=== PATIENT | female | born 1945 | race Caucasian/White ===

== ENCOUNTER 2020-04-07 06:17 | Inpatient (IN) | payer MEDICARE ==
[~2020-04-07] VITALS: Ht 152.4 cm; Wt 45.2 kg
[~2020-04-07 06:17] MED LIST: ALBU18HF7 IH; CHOL200041 PO; DILT300C23 PO; DIPH25TA20 PO; FISH1CAP49 PO; FURO20TA4 PO; LEVO500T2 PO; MILK500C PO; MULT-503 PO; NAPR220C15 PO; POTA-79 PO; PRED10TA3 PO; RIVA20TA PO; TIOT18CA3 IH
[2020-04-07] MEDS ORDERED: ONDANSETRON HCL 4 MG/2 ML VIAL ONE (06:28)
[2020-04-07] MEDS ORDERED: FENTANYL CITRATE PF 50 MCG/1 ML 2ML VIAL ONE (06:29)
[2020-04-07 06:47] LABS: BASOPHILS % (AUTO) 0.1 % (0.0-5.0); EOSINOPHILS % (AUTO) 0.1 % (0.0-8.0); HEMATOCRIT 32.8 % (36-48); LYMPHOCYTES % (AUTO) 4.4 % (21.0-51.0); MEAN CORPUSCULAR HEMOGLOBIN 32.7 pg (27.0-33.0); MEAN CORPUSCULAR HGB CONC 34.5 g/dL (32.0-36.0); MEAN CORPUSCULAR VOLUME 94.8 fL (79-99); MONOCYTES % (AUTO) 9.6 % (3.0-13.0); NEUTROPHILS % (AUTO) 85.4 % (40.0-77.0); PLATELET COUNT (AUTO) 313 K/uL (130-400); RED BLOOD CELL COUNT(AUTO) 3.46 MIL/uL (4.00-5.50); RED CELL DISTRIBUTION WIDTH 13.7 % (11.0-15.5); WHITE BLOOD COUNT (AUTO) 14.6 K/uL (4.8-10.8)
[2020-04-07 06:57] LABS: CREATININE 0.8 mg/dL (0.5-1.5); POTASSIUM 3.5 mmol/L (3.5-5.1)
[2020-04-07 07:01] LABS: ALBUMIN 3.3 g/dL (3.5-5.0); BILIRUBIN,TOTAL 0.7 mg/dL (0.2-1.0); TOTAL PROTEIN, SERUM 6.9 g/dL (6.0-8.3)
[2020-04-07 07:03] LABS: INR 0.94 (0.85-1.15); PARTIAL THROMBOPLASTIN TIME 27.5 SEC (26.3-35.5); PROTHROMBIN TIME 10.2 SEC (9.6-11.6)
[2020-04-07 07:15] LABS: APPEARANCE,URINE Clear (CLEAR); BILIRUBIN,URINE Negative (NEGATIVE); COLOR,URINE Yellow (YELLOW); GLUCOSE, URINE (UA) Negative (NEGATIVE); KETONES,URINE Trace mg/dL (NEGATIVE); LEUKOCYTE ESTERASE ,URINE Trace (NEGATIVE); NITRATE,URINE Negative (NEGATIVE); OCCULT BLOOD,URINE Negative (NEGATIVE); PH,URINE 8.5 (5.0-8.0); PROTEIN,URINE Trace mg/dL (NEGATIVE); UROBILINOGEN,URINE 0.2 mg/dL (0.2-1.0)
[2020-04-07] MEDS ORDERED: IPRATROPIUM/ALBUTEROL SULFATE 3 ML SOLUTION IH ONE ×2 (07:31→18:30)
[2020-04-07 08:30] LABS: BACTERIA,URINE Moderate /HPF (None Seen); RBC,URINE None Seen /HPF (0-1); WBC,URINE 0-1 /HPF (0-1)
[2020-04-07] MEDS ORDERED: CEFTRIAXONE SODIUM 2 GM VIAL ONE (09:28)
[2020-04-07] MEDS ORDERED: ACETAMINOPHEN 325 MG TAB PO PRN (09:45)
[2020-04-07] MEDS: SODIUM CHLORIDE 0.9% 1000ML 1,000 ML IV SCH ×3 (10:00→23:20)
[2020-04-07] MEDS: AZITHROMYCIN 500MG+NS 250ML 250 ML IV SCH (10:00)
[2020-04-07] MEDS ORDERED: AZITHROMYCIN 500MG+NS 250ML 250 ML IV ONE (10:41)
[2020-04-07] MEDS ORDERED: MORPHINE SULFATE 2 MG/ML 1ML SYG ONE (10:41)
[2020-04-07 11:52] VITALS: BP 134/67
[2020-04-07] MEDS ORDERED: BUDE10.2 IH (12:43)
[2020-04-07 17:00] VITALS: BP 146/78
[2020-04-07 20:00] VITALS: BP 150/41
[2020-04-07] MEDS: FAMOTIDINE/PF 20 MG/2 ML VIAL IV SCH (20:53)
[2020-04-07] MEDS: ACETAMINOPHEN-CODEINE 300/30MG TAB PO PRN (21:45)
[2020-04-07] MEDS ORDERED: BUDESONIDE 0.25 MG/2 ML INH IH ONE (22:31)
[2020-04-07] MEDS ORDERED: BUDESONIDE 0.5 MG/2 ML INH IH ONE (22:38)
[2020-04-07] MEDS: ALBUTEROL SULFATE 0.083% 2.5 MG/3 ML INH IH PRN (22:39)
[2020-04-08] VITALS: BP 107/53
[2020-04-08] MEDS: SODIUM CHLORIDE 0.9% 1000ML 1,000 ML IV SCH (01:50)
[2020-04-08 03:45] VITALS: BP 127/58
[2020-04-08 03:55] LABS: BASOPHILS % (AUTO) 0.3 % (0.0-5.0); EOSINOPHILS % (AUTO) 0.4 % (0.0-8.0); HEMATOCRIT 26.3 % (36-48); MEAN CORPUSCULAR HEMOGLOBIN 33.5 pg (27.0-33.0); MEAN CORPUSCULAR HGB CONC 34.2 g/dL (32.0-36.0); MEAN CORPUSCULAR VOLUME 97.8 fL (79-99); MONOCYTES % (AUTO) 9.5 % (3.0-13.0); NEUTROPHILS % (AUTO) 83.3 % (40.0-77.0); PLATELET COUNT (AUTO) 217 K/uL (130-400); RED BLOOD CELL COUNT(AUTO) 2.69 MIL/uL (4.00-5.50); RED CELL DISTRIBUTION WIDTH 14.5 % (11.0-15.5); WHITE BLOOD COUNT (AUTO) 13.1 K/uL (4.8-10.8)
[2020-04-08 04:07] LABS: ALBUMIN 2.6 g/dL (3.5-5.0); BILIRUBIN,TOTAL 0.4 mg/dL (0.2-1.0); CREATININE 0.5 mg/dL (0.5-1.5); POTASSIUM 3.5 mmol/L (3.5-5.1); TOTAL PROTEIN, SERUM 5.7 g/dL (6.0-8.3)
[2020-04-08] MEDS: MORPHINE SULFATE 2 MG/ML 1ML SYG IVP PRN ×2 (04:35→21:39)
[2020-04-08] MEDS: ALBUTEROL SULFATE 0.083% 2.5 MG/3 ML INH IH PRN ×5 (07:13→23:31)
[2020-04-08 08:00] VITALS: BP 103/62
[2020-04-08] MEDS: AZITHROMYCIN 500MG+NS 250ML 250 ML IV SCH (10:02)
[2020-04-08] MEDS: ENOXAPARIN SODIUM 40 MG/0.4 ML SYRINGE SQ SCH (10:02)
[2020-04-08] MEDS: FAMOTIDINE/PF 20 MG/2 ML VIAL IV SCH ×2 (10:03→21:40)
[2020-04-08] MEDS: NICOTINE 21 MG/ 24 HR PATCH TD SCH (10:03)
[2020-04-08 11:00] VITALS: BP 136/51
[2020-04-08] MEDS ORDERED: ALBUTEROL INHALER 90MCG/INH IH PRN (13:15)
[2020-04-08] MEDS: CEFTRIAXONE SODIUM 1 GM IVP SCH (14:56)
[2020-04-08] MEDS: FUROSEMIDE 10 MG/ML 2ML VIAL IV SCH (14:58)
[2020-04-08 16:00] VITALS: BP 157/62
[2020-04-08] MEDS: ACETAMINOPHEN-CODEINE 300/30MG TAB PO PRN (18:26)
--- NOTE | 2020-04-08 18:35 | NUR ---
cm note met with patient and states lives alone, , uses walker , has nebulizer, adls per self, has friends that buy her groceries, [facility] [place], Kenyatta Sorto [phone]. Discussed snf with pt, and states is agreeable to go to snf/rehab after surgery. will let cm know. Addendum: 04/08/20 at 1837 by ERLIN REID CM Amended: Links added.
[2020-04-08 20:28] VITALS: BP 133/53
[2020-04-09 00:05] VITALS: BP 159/64
[2020-04-09] MEDS: CEFTRIAXONE SODIUM 1 GM IVP SCH ×3 (01:47→23:56)
[2020-04-09] MEDS: ACETAMINOPHEN-CODEINE 300/30MG TAB PO PRN (01:48)
[2020-04-09] MEDS: FUROSEMIDE 10 MG/ML 2ML VIAL IV SCH (01:48)
[2020-04-09] MEDS: ALBUTEROL SULFATE 0.083% 2.5 MG/3 ML INH IH PRN ×3 (02:21→09:21)
--- NOTE | 2020-04-09 03:22 | NUR ---
PATIENT CONVERTED TO AFIB. MIKAYLA MCCRARY WAS NOTIFIED. NEW ORDERS WERE OBTAINED FOR ONE TIME DOSE OF METOPROLOL TAR 5MG, EKG, MAG, CBC, AND BMP LABS
[2020-04-09] MEDS ORDERED: MAGNESIUM 2GM PREMIX 50ML 50 ML IV PRN (03:30)
[2020-04-09] MEDS: METOPROLOL TARTRATE 1 MG/ML 5ML VIAL IV SCH (03:30)
[2020-04-09] MEDS ORDERED: METOPROLOL TARTRATE 1 MG/ML 5ML VIAL IV ONE (03:35)
[2020-04-09 04:19] VITALS: BP 165/88
[2020-04-09 05:06] LABS: HEMATOCRIT 27.8 % (36-48); MEAN CORPUSCULAR HEMOGLOBIN 34.2 pg (27.0-33.0); MEAN CORPUSCULAR HGB CONC 34.9 g/dL (32.0-36.0); MEAN CORPUSCULAR VOLUME 97.9 fL (79-99); RED BLOOD CELL COUNT(AUTO) 2.84 MIL/uL (4.00-5.50); WHITE BLOOD COUNT (AUTO) 11.5 K/uL (4.8-10.8)
[2020-04-09 05:11] LABS: CREATININE 0.4 mg/dL (0.5-1.5); MAGNESIUM 1.5 mg/dL (1.80-2.40)
[2020-04-09 05:16] LABS: POTASSIUM 2.5 mmol/L (3.5-5.1)
[2020-04-09 05:25] LABS: CREATINE KINASE, TOTAL 92 U/L (21-232); MYOGLOBIN 94 ng/mL (10-92); TROPONIN I < 0.04 ng/mL (0.00-0.06)
[2020-04-09] MEDS: POTASSIUM CHLORIDE 20MEQ/100ML 100 ML IV PRN ×2 (07:27→14:23)
[2020-04-09 08:00] VITALS: BP 153/53
[2020-04-09] MEDS: ENOXAPARIN SODIUM 40 MG/0.4 ML SYRINGE SQ SCH (09:00)
[2020-04-09] MEDS: DEXAMETHASONE SOD PHOSPHATE 4 MG/ML 1ML VIAL IVP SCH (10:09)
[2020-04-09] MEDS: FAMOTIDINE/PF 20 MG/2 ML VIAL IV SCH ×2 (10:10→20:20)
[2020-04-09] MEDS: DILTIAZEM HCL 180 MG CAP.SR.24H PO SCH (10:11)
[2020-04-09] MEDS: DILTIAZEM HCL 120 MG CAP.SR.24H PO SCH (10:11)
[2020-04-09] MEDS: NICOTINE 21 MG/ 24 HR PATCH TD SCH (10:12)
[2020-04-09] MEDS: AZITHROMYCIN 500MG+NS 250ML 250 ML IV SCH (10:13)
[2020-04-09] MEDS: ALBUTEROL SULFATE 0.083% 2.5 MG/3 ML INH IH SCH ×2 (11:35→18:40)
[2020-04-09 12:00] VITALS: BP 158/58
[2020-04-09] MEDS: LIDOCAINE HCL-MPF 1% 2ML VIAL IV PRN (14:23)
[2020-04-09 16:00] VITALS: BP 149/48
[2020-04-09] MEDS ORDERED: IPRATROPIUM/ALBUTEROL SULFATE 3 ML SOLUTION IH PRN (16:00)
[2020-04-09] MEDS: BUDESONIDE 0.5 MG/2 ML INH IH SCH (18:59)
[2020-04-09] MEDS: POTASSIUM CHLORIDE 20 MEQ ERTAB PO PRN ×2 (20:20→23:56)
[2020-04-09 21:30] VITALS: BP 158/59
[2020-04-10] VITALS (32 sets, daily range): BP systolic 123–164; BP diastolic 45–108
[2020-04-10] MEDS: METOPROLOL TARTRATE 1 MG/ML 5ML VIAL IV SCH (03:30)
[2020-04-10 05:48] LABS: BASOPHILS % (AUTO) 0.1 % (0.0-5.0); HEMATOCRIT 28.5 % (36-48); LYMPHOCYTES % (AUTO) 2.4 % (21.0-51.0); MEAN CORPUSCULAR HEMOGLOBIN 33.4 pg (27.0-33.0); MEAN CORPUSCULAR HGB CONC 34.4 g/dL (32.0-36.0); MEAN CORPUSCULAR VOLUME 97.3 fL (79-99); MONOCYTES % (AUTO) 7.4 % (3.0-13.0); NEUTROPHILS % (AUTO) 89.7 % (40.0-77.0); PLATELET COUNT (AUTO) 262 K/uL (130-400); RED BLOOD CELL COUNT(AUTO) 2.93 MIL/uL (4.00-5.50); RED CELL DISTRIBUTION WIDTH 14.1 % (11.0-15.5); WHITE BLOOD COUNT (AUTO) 14.3 K/uL (4.8-10.8)
[2020-04-10 06:06] LABS: CREATININE 0.4 mg/dL (0.5-1.5); POTASSIUM 4.2 mmol/L (3.5-5.1)
[2020-04-10] MEDS: ALBUTEROL SULFATE 0.083% 2.5 MG/3 ML INH IH SCH ×4 (06:58→19:01)
[2020-04-10] MEDS: BUDESONIDE 0.5 MG/2 ML INH IH SCH ×2 (06:58→19:01)
[2020-04-10] MEDS: NICOTINE 21 MG/ 24 HR PATCH TD SCH (09:00)
[2020-04-10] MEDS: DEXAMETHASONE SOD PHOSPHATE 4 MG/ML 1ML VIAL IVP SCH (09:00)
[2020-04-10] MEDS: DILTIAZEM HCL 120 MG CAP.SR.24H PO SCH (09:00)
[2020-04-10] MEDS: DILTIAZEM HCL 180 MG CAP.SR.24H PO SCH (09:00)
[2020-04-10] MEDS: ENOXAPARIN SODIUM 40 MG/0.4 ML SYRINGE SQ SCH (09:00)
[2020-04-10] MEDS: FAMOTIDINE/PF 20 MG/2 ML VIAL IV SCH ×2 (09:00→20:01)
[2020-04-10] MEDS ORDERED: SUCCINYLCHOLINE CHLORIDE 20 MG/ML 10 ML VIAL ONE (10:00)
[2020-04-10] MEDS ORDERED: LIDOCAINE PF 2% 5ML ABBOJECT ONE (10:00)
[2020-04-10] MEDS ORDERED: GLYCOPYRROLATE 1 MG/5 ML SYRINGE ONE (10:01)
[2020-04-10] MEDS ORDERED: DEXAMETHASONE SOD PHOSPHATE 10MG/ML 1ML VIAL ONE (10:01)
[2020-04-10] MEDS ORDERED: NEOSTIGMINE 5MG/5ML SYR IV ONE (10:01)
[2020-04-10] MEDS ORDERED: MIDAZOLAM HCL 1 MG/ML 2ML VIAL ONE (10:01)
[2020-04-10] MEDS ORDERED: PROPOFOL 10 MG/ML 20ML VIAL IV ONE (10:01)
[2020-04-10] MEDS ORDERED: ROCURONIUM 10MG/1ML SYR 10 MG/ML ML ONE (10:02)
[2020-04-10] MEDS ORDERED: ONDANSETRON HCL 4 MG/2 ML VIAL ONE (10:02)
[2020-04-10] MEDS ORDERED: FENTANYL CITRATE PF 50 MCG/1 ML 2ML VIAL ONE (10:04)
[2020-04-10] MEDS ORDERED: EPHEDRINE SULFATE 50 MG/ML AMPULE ONE (10:05)
--- NOTE | 2020-04-10 10:06 | NUR ---
pt is prepared for lt hip surgery. npo, a/o x3.
[2020-04-10] MEDS ORDERED: ALBUMIN (HUMAN) 5% 500 ML IV ONE (10:21)
[2020-04-10] MEDS ORDERED: ROPIVACAINE 0.5% 5MG/ML 30ML IJ ONE (10:21)
[2020-04-10] MEDS ORDERED: KETAMINE 50MG/ML SYRINGE 50 MG/ML DISP.SYRIN IV ONE (10:22)
--- NOTE | 2020-04-10 10:24 | NUR ---
pt taken by bed in good condition to surgery for lt hip repair with O2 3lnc in place
--- NOTE | 2020-04-10 10:25 | NUR ---
IV ABX's with surgery staff
[2020-04-10] MEDS: AZITHROMYCIN 500MG+NS 250ML 250 ML IV SCH (10:31)
[2020-04-10] MEDS ORDERED: LACTATED RINGERS 1000ML 1,000 ML IV ONE (10:39)
[2020-04-10] MEDS ORDERED: CEFTRIAXONE SODIUM 1 GM ONE (12:01)
[2020-04-10] MEDS: CEFTRIAXONE SODIUM 1 GM IVP SCH (13:00)
--- NOTE | 2020-04-10 14:50 | NUR ---
CALLED DAUGHTERDAWNA TO NOTIFY HER OF PT IN ROOM BACK FROM O.R. VERBALIZED UNDERSTANDING.
--- NOTE | 2020-04-10 20:00 | NUR ---
PATIENT RECEIVED IN BED, AAOX1-2. PT IS POST LEFT HIP ORIF. DRESSING TO LEFT HIP IS D/I, WITH PULSES STRONG TO DORSALIS. PATIENT CURRENTLY WITH A NRB MASK. PER REPORT, PT WITH LOW SATURATIONS WITH NC. PATIENT NOT COMPLYING WITH KEEPING ON NRB MASK. SHE WAS ASSISTED WITH EATING ICE CREAM AND NRM PLACED BACK ON PATIENT. INSTRUCTED HER TO KEEP MASK ON. PATIENT NODDED AGREEMENT. TELE WITH SINUS 80. WILL CONT TO MONITOR CLOSELY.
--- NOTE | 2020-04-10 23:00 | NUR ---
PEGGY MARISCAL WAS NOTIFIED BY TELEMONITOR PT WITH HR IN THE 30s JUNCTIONAL RHYTHM FOR ABOUT A MINUTE, THEN BACK TO THE 50s. I WENT TO CHECK ON PATIENT, PATIENT WAS FOUND WITHOUT HER NRB MASK AND UNRESPONSIVE. PEGGY MARISCAL IMMEDIATELY CALLED. REFER TO PEGGY MARISCAL FLOW SHEET. PT WAS INTUBATED BY DR. REINOSO AND THEN TRANSFERRED TO ROOM DP-15. REPORT GIVEN TO AILIN BECERRA.
[2020-04-10 23:18] LABS: BASOPHILS % (AUTO) 0.2 % (0.0-5.0); EOSINOPHILS % (AUTO) 0.1 % (0.0-8.0); HEMATOCRIT 27.8 % (36-48); LYMPHOCYTES % (AUTO) 3.6 % (21.0-51.0); MEAN CORPUSCULAR HEMOGLOBIN 33.1 pg (27.0-33.0); MEAN CORPUSCULAR VOLUME 103.3 fL (79-99); MONOCYTES % (AUTO) 4.6 % (3.0-13.0); NEUTROPHILS % (AUTO) 88.7 % (40.0-77.0); PLATELET COUNT (AUTO) 237 K/uL (130-400); RED BLOOD CELL COUNT(AUTO) 2.69 MIL/uL (4.00-5.50); RED CELL DISTRIBUTION WIDTH 14.9 % (11.0-15.5); WHITE BLOOD COUNT (AUTO) 13.7 K/uL (4.8-10.8)
[2020-04-10 23:29] LABS: CREATININE 0.7 mg/dL (0.5-1.5); POTASSIUM 5.8 mmol/L (3.5-5.1)
[2020-04-10 23:34] LABS: ALBUMIN 3.1 g/dL (3.5-5.0); BILIRUBIN,TOTAL 0.5 mg/dL (0.2-1.0); MAGNESIUM 2.2 mg/dL (1.80-2.40); TOTAL PROTEIN, SERUM 6.7 g/dL (6.0-8.3)
--- NOTE | 2020-04-10 23:35 | NUR ---
I CALLED PT'S DAUGHTER, DAWNA, INFORMED HER OF CODE BLUE AND THAT PATIENT WAS TRANSFERRED TO ROOM DP-15.
[2020-04-10 23:36] LABS: INR 1.06 (0.85-1.15); PARTIAL THROMBOPLASTIN TIME 26.1 SEC (26.3-35.5); PROTHROMBIN TIME 11.4 SEC (9.6-11.6)
[2020-04-11] VITALS (24 sets, daily range): BP systolic 110–179; BP diastolic 43–87
[2020-04-11] MEDS: CEFTRIAXONE SODIUM 1 GM IVP SCH ×2 (00:08→12:23)
[2020-04-11] MEDS: ALBUTEROL SULFATE 0.083% 2.5 MG/3 ML INH IH SCH ×5 (00:45→23:52)
[2020-04-11 00:59] LABS: ABG OXYGEN SATURATION 99.7 % (95.0-99.0); ABG PCO2 55 mmHg (32-45)
[2020-04-11] MEDS ORDERED: FENTANYL CITRATE PF 0.05 MG/ML 1,000 MCG in SODIUM CHLORIDE 0.9% 100 ML IVPB SCH (01:15)
[2020-04-11] MEDS: PROPOFOL 1000 MG/100 ML 100 ML IV SCH ×3 (01:17→17:11)
[2020-04-11] MEDS: METOPROLOL TARTRATE 1 MG/ML 5ML VIAL IV SCH (01:59)
[2020-04-11 03:17] LABS: BASOPHILS % (AUTO) 0.1 % (0.0-5.0); HEMATOCRIT 24.4 % (36-48); MEAN CORPUSCULAR HEMOGLOBIN 32.9 pg (27.0-33.0); MEAN CORPUSCULAR HGB CONC 32.4 g/dL (32.0-36.0); MEAN CORPUSCULAR VOLUME 101.7 fL (79-99); MONOCYTES % (AUTO) 10.9 % (3.0-13.0); NEUTROPHILS % (AUTO) 85.3 % (40.0-77.0); PLATELET COUNT (AUTO) 171 K/uL (130-400); RED CELL DISTRIBUTION WIDTH 14.6 % (11.0-15.5); WHITE BLOOD COUNT (AUTO) 13.4 K/uL (4.8-10.8)
[2020-04-11] MEDS ORDERED: IOHEXOL-350 75 ML VIAL IV ONE ×2 (03:18→03:50)
[2020-04-11 03:25] LABS: CREATININE 0.4 mg/dL (0.5-1.5); POTASSIUM 4.6 mmol/L (3.5-5.1)
[2020-04-11] MEDS: BUDESONIDE 0.5 MG/2 ML INH IH SCH ×2 (06:16→18:50)
[2020-04-11] MEDS ORDERED: EPOETIN ALFA 10,000 UNIT/ML VIAL SQ SCH (08:45)
[2020-04-11] MEDS ORDERED: CYANOCOBALAMIN (VITAMIN B-12) 1,000 MCG TABLET PO SCH (08:45)
[2020-04-11] MEDS: FAMOTIDINE/PF 20 MG/2 ML VIAL IV SCH ×2 (09:43→20:32)
[2020-04-11] MEDS: DILTIAZEM HCL 120 MG CAP.SR.24H PO SCH (09:44)
[2020-04-11] MEDS: IRON SUCROSE COMPLEX 300 MG in SODIUM CHLORIDE 0.9% 250 ML IV SCH (09:44)
[2020-04-11] MEDS: DILTIAZEM HCL 180 MG CAP.SR.24H PO SCH (09:44)
[2020-04-11] MEDS: NICOTINE 21 MG/ 24 HR PATCH TD SCH (09:45)
[2020-04-11] MEDS: FOLIC ACID 1 MG TABLET PO SCH (09:45)
[2020-04-11] MEDS: DEXAMETHASONE SOD PHOSPHATE 4 MG/ML 1ML VIAL IVP SCH (09:45)
[2020-04-11] MEDS: AZITHROMYCIN 500MG+NS 250ML 250 ML IV SCH (11:40)
[2020-04-11] MEDS: ENOXAPARIN SODIUM 40 MG/0.4 ML SYRINGE SQ SCH (12:00)
[2020-04-11] MEDS: DILTIAZEM HCL 60 MG TABLET PO SCH ×4 (12:23→22:31)
--- NOTE | 2020-04-11 12:31 | NUR ---
DC PLAN SEE NOTES FOR INITIAL IA. ALONE [place]IO CO[place]URN, NEB, HOME. ALFREDR DAWNA [phone]. PEGGY MARISCAL 04/10. Addendum: 04/11/20 at 1232 by JENNIE ELIZONDO RN Amended: Links added.
[2020-04-11] MEDS ORDERED: HYDRALAZINE HCL 20 MG/ML VIAL ONE (13:00)
[2020-04-11] MEDS ORDERED: LABETALOL HCL 5 MG/ML 20ML VIAL IV PRN (13:45)
[2020-04-11] MEDS: FENTANYL 2500MCG+NS 250ML 250 ML IV SCH (13:50)
[2020-04-11] MEDS ORDERED: ALBUTEROL SULFATE 0.083% 2.5 MG/3 ML INH IH PRN (14:00)
[2020-04-11] MEDS: MEROPENEM 1 GM VIAL IVP SCH (17:11)
[2020-04-11] MEDS ORDERED: ATROPINE SULFATE 0.1 MG/ML 10 ML SYG IVP ONE (23:59)
[2020-04-12] VITALS (25 sets, daily range): BP systolic 99–177; BP diastolic 41–84
[2020-04-12] MEDS: METOPROLOL TARTRATE 1 MG/ML 5ML VIAL IV SCH (00:10)
[2020-04-12] MEDS: MEROPENEM 1 GM VIAL IVP SCH ×3 (00:10→15:52)
[2020-04-12 03:44] LABS: BASOPHILS % (AUTO) 0.1 % (0.0-5.0); HEMATOCRIT 23.6 % (36-48); LYMPHOCYTES % (AUTO) 4.4 % (21.0-51.0); MEAN CORPUSCULAR HEMOGLOBIN 33.6 pg (27.0-33.0); MEAN CORPUSCULAR HGB CONC 33.1 g/dL (32.0-36.0); MEAN CORPUSCULAR VOLUME 101.7 fL (79-99); MONOCYTES % (AUTO) 11.1 % (3.0-13.0); NEUTROPHILS % (AUTO) 83.6 % (40.0-77.0); PLATELET COUNT (AUTO) 170 K/uL (130-400); RED BLOOD CELL COUNT(AUTO) 2.32 MIL/uL (4.00-5.50); RED CELL DISTRIBUTION WIDTH 14.9 % (11.0-15.5)
--- NOTE | 2020-04-12 03:57 | NUR ---
PT RECEIVED NOON DOSE OF CARDIZEM AND NO 6PM DOSE. PT HEART RATE SUSTAINED IN THE 40'S WILL NOT GIVE ANY DOSES. HEART RATE DROPPED LOW 31. MEDICATION SHOULD BE RE-EVALUATED.
[2020-04-12 04:09] LABS: CREATININE 0.5 mg/dL (0.5-1.5); PHOSPHORUS 3.9 mg/dL (2.5-4.9); POTASSIUM 4.3 mmol/L (3.5-5.1)
[2020-04-12 05:53] LABS: ABG BASE EXCESS 4.6 mmol/L (-2.0-3.0); ABG HCO3 28.2 mmol/L (21.0-28.0); ABG OXYGEN SATURATION 98.4 % (95.0-99.0); ABG PCO2 39 mmHg (32-45)
[2020-04-12] MEDS: DILTIAZEM HCL 60 MG TABLET PO SCH (05:59)
[2020-04-12] MEDS: ALBUTEROL SULFATE 0.083% 2.5 MG/3 ML INH IH SCH ×3 (06:41→18:11)
[2020-04-12] MEDS: BUDESONIDE 0.5 MG/2 ML INH IH SCH ×2 (06:41→18:11)
--- NOTE | 2020-04-12 06:42 | NUR ---
HR SUSTAINED LOW 40'S TO 30'S LAST QUARTER OF SHIFT. SBP NEVER DROPPED BELOW 120'S. HELD CARDIZEM 6P, 12AM AND 6AM PLEASE RE-EVALUATE WHILE PATIENT RECEIVING SEDATION.
[2020-04-12] MEDS: IRON SUCROSE COMPLEX 300 MG in SODIUM CHLORIDE 0.9% 250 ML IV SCH (08:07)
[2020-04-12] MEDS: DEXAMETHASONE SOD PHOSPHATE 4 MG/ML 1ML VIAL IVP SCH (08:14)
[2020-04-12] MEDS: FOLIC ACID 1 MG TABLET PO SCH (08:14)
[2020-04-12] MEDS: FAMOTIDINE/PF 20 MG/2 ML VIAL IV SCH ×2 (08:14→21:16)
[2020-04-12] MEDS: ENOXAPARIN SODIUM 40 MG/0.4 ML SYRINGE SQ SCH (08:14)
[2020-04-12] MEDS: FENTANYL 2500MCG+NS 250ML 250 ML IV SCH (08:52)
[2020-04-12] MEDS: PROPOFOL 1000 MG/100 ML 100 ML IV SCH (08:52)
[2020-04-12] MEDS: NICOTINE 21 MG/ 24 HR PATCH TD SCH (10:12)
[2020-04-12] MEDS: AZITHROMYCIN 500MG+NS 250ML 250 ML IV SCH (10:13)
[2020-04-12 12:56] LABS: ABG BASE EXCESS 4.8 mmol/L (-2.0-3.0); ABG HCO3 29.2 mmol/L (21.0-28.0); ABG OXYGEN SATURATION 97.4 % (95.0-99.0); ABG PCO2 42 mmHg (32-45)
[2020-04-12] MEDS ORDERED: DILTIAZEM HCL 5 MG/ML 5 ML VIAL IVP PRN (13:30)
[2020-04-12] MEDS ORDERED: DILTIAZEM HCL 125 MG/25 ML 125 MG in SODIUM CHLORIDE 0.9% 100 ML IV PRN (13:30)
[2020-04-12] MEDS: DILTIAZEM HCL 5 MG/ML 10 ML VIAL IV SCH ×2 (14:30→15:34)
--- NOTE | 2020-04-12 20:00 | NUR ---
ASSESSMENT PT CURRENTLY RESTING QUIETLY IN BED, INTUBATED AND SEDATED, PRECEDEX AND FENTANYL INFUSING WITHOUT DIFFICULTY. VENT SETTINGS: AC/20/40%/380 WITH PEEP OF 5. PT IS CURRENTLY IN A.FIB WITH HR OF 40, CARDIZEM STOPPED. OGT 16FR IS CURRENTLY CLAMPED. FC 16FR TO BSD. ASSESSMENT COMPLETED, SEE FLOW SHEETS.
[2020-04-13] VITALS (24 sets, daily range): BP systolic 124–174; BP diastolic 39–69
[2020-04-13] MEDS: METOPROLOL TARTRATE 1 MG/ML 5ML VIAL IV SCH (00:03)
[2020-04-13] MEDS: MEROPENEM 1 GM VIAL IVP SCH ×3 (00:11→17:50)
[2020-04-13] MEDS: HYDRALAZINE HCL 20 MG/ML VIAL IV PRN (00:12)
[2020-04-13] MEDS: ALBUTEROL SULFATE 0.083% 2.5 MG/3 ML INH IH SCH ×4 (00:38→18:14)
[2020-04-13] MEDS: DEXMEDETOMIDINE HCL 400 MCG in SODIUM CHLORIDE 0.9% 100 ML IV SCH ×2 (00:44→19:14)
--- NOTE | 2020-04-13 01:40 | NUR ---
HEART RATE HR 130'S AND IRREGULAR, CARDIZEM RE-STARTED AT 5MG/H
[2020-04-13] MEDS ORDERED: DILTIAZEM HCL 5 MG/ML 10 ML VIAL IV SCH (01:45)
--- NOTE | 2020-04-13 02:00 | NUR ---
HEART RATE HR 56 AND REMAINS IRREGULAR
--- NOTE | 2020-04-13 03:55 | NUR ---
HEART RATE HR 41, IRREGULAR, CARDIZEM STOPPED. PT CURRENTLY SEDATED. PROPOFOL ALSO STOPPED. PRECEDEX AND FENTANYL CONTINUE TO INFUSE WITHOUT DIFFICULTY.
[2020-04-13 06:29] LABS: BASOPHILS % (AUTO) 0.1 % (0.0-5.0); HEMATOCRIT 24.1 % (36-48); LYMPHOCYTES % (AUTO) 8.4 % (21.0-51.0); MEAN CORPUSCULAR HEMOGLOBIN 33.5 pg (27.0-33.0); MEAN CORPUSCULAR HGB CONC 33.2 g/dL (32.0-36.0); MEAN CORPUSCULAR VOLUME 100.8 fL (79-99); MONOCYTES % (AUTO) 12.4 % (3.0-13.0); NEUTROPHILS % (AUTO) 78.3 % (40.0-77.0); NUCLEATED RED BLOOD CELLS 0.2 % (0.0-0.19); PLATELET COUNT (AUTO) 185 K/uL (130-400); RED BLOOD CELL COUNT(AUTO) 2.39 MIL/uL (4.00-5.50); RED CELL DISTRIBUTION WIDTH 14.6 % (11.0-15.5); WHITE BLOOD COUNT (AUTO) 9.5 K/uL (4.8-10.8)
[2020-04-13] MEDS: BUDESONIDE 0.5 MG/2 ML INH IH SCH ×2 (06:33→18:14)
[2020-04-13 06:43] LABS: CREATININE 0.4 mg/dL (0.5-1.5); POTASSIUM 3.7 mmol/L (3.5-5.1)
[2020-04-13] MEDS: FENTANYL 2500MCG+NS 250ML 250 ML IV SCH (08:28)
[2020-04-13] MEDS: FAMOTIDINE/PF 20 MG/2 ML VIAL IV SCH ×2 (08:29→21:29)
[2020-04-13] MEDS: POTASSIUM CHLORIDE 10% ELIXIR 20 MEQ/15 ML UDCUP PO PRN (08:29)
[2020-04-13] MEDS: FOLIC ACID 1 MG TABLET PO SCH (08:29)
[2020-04-13] MEDS: ONDANSETRON HCL 4 MG/2 ML VIAL IVP PRN (08:29)
[2020-04-13] MEDS: ENOXAPARIN SODIUM 40 MG/0.4 ML SYRINGE SQ SCH (08:29)
[2020-04-13] MEDS: NICOTINE 21 MG/ 24 HR PATCH TD SCH (09:44)
[2020-04-13] MEDS: AZITHROMYCIN 500MG+NS 250ML 250 ML IV SCH (09:45)
--- NOTE | 2020-04-13 10:10 | NUR ---
Extubation Pt extubated by RT per MD order. placed on venti mask.
[2020-04-13 11:28] LABS: ABG BASE EXCESS 2.7 mmol/L (-2.0-3.0); ABG OXYGEN SATURATION 96.1 % (95.0-99.0); ABG PCO2 57 mmHg (32-45)
[2020-04-13 13:18] LABS: ABG BASE EXCESS 1.8 mmol/L (-2.0-3.0); ABG HCO3 27.8 mmol/L (21.0-28.0); ABG OXYGEN SATURATION 93.7 % (95.0-99.0); ABG PCO2 49 mmHg (32-45)
[2020-04-13] MEDS: DILTIAZEM HCL 60 MG TABLET PO SCH (17:50)
[2020-04-14] VITALS (23 sets, daily range): BP systolic 111–160; BP diastolic 47–100
[2020-04-14] MEDS: METOPROLOL TARTRATE 1 MG/ML 5ML VIAL IV SCH (00:07)
[2020-04-14] MEDS: MEROPENEM 1 GM VIAL IVP SCH ×3 (00:40→15:50)
[2020-04-14] MEDS: DILTIAZEM HCL 60 MG TABLET PO SCH ×4 (00:40→17:55)
[2020-04-14] MEDS: ALBUTEROL SULFATE 0.083% 2.5 MG/3 ML INH IH SCH ×4 (01:09→19:08)
[2020-04-14 03:39] LABS: BASOPHILS % (AUTO) 0.2 % (0.0-5.0); EOSINOPHILS % (AUTO) 0.5 % (0.0-8.0); HEMATOCRIT 27.3 % (36-48); LYMPHOCYTES % (AUTO) 7.4 % (21.0-51.0); MEAN CORPUSCULAR HEMOGLOBIN 32.3 pg (27.0-33.0); MEAN CORPUSCULAR HGB CONC 31.5 g/dL (32.0-36.0); MEAN CORPUSCULAR VOLUME 102.6 fL (79-99); NEUTROPHILS % (AUTO) 78.3 % (40.0-77.0); NUCLEATED RED BLOOD CELLS 1.5 % (0.0-0.19); PLATELET COUNT (AUTO) 254 K/uL (130-400); RED BLOOD CELL COUNT(AUTO) 2.66 MIL/uL (4.00-5.50); RED CELL DISTRIBUTION WIDTH 14.8 % (11.0-15.5); WHITE BLOOD COUNT (AUTO) 10.8 K/uL (4.8-10.8)
[2020-04-14 03:54] LABS: CREATININE 0.5 mg/dL (0.5-1.5); POTASSIUM 3.6 mmol/L (3.5-5.1)
[2020-04-14] MEDS: DEXMEDETOMIDINE HCL 400 MCG in SODIUM CHLORIDE 0.9% 100 ML IV SCH (05:38)
[2020-04-14] MEDS: BUDESONIDE 0.5 MG/2 ML INH IH SCH ×2 (06:09→19:08)
[2020-04-14] MEDS: FOLIC ACID 1 MG TABLET PO SCH (09:05)
[2020-04-14] MEDS: NICOTINE 21 MG/ 24 HR PATCH TD SCH (09:06)
[2020-04-14] MEDS: FAMOTIDINE/PF 20 MG/2 ML VIAL IV SCH ×2 (09:06→21:52)
[2020-04-14] MEDS: ENOXAPARIN SODIUM 40 MG/0.4 ML SYRINGE SQ SCH (09:06)
--- NOTE | 2020-04-14 10:50 | NUR ---
DYSPHAGIA EVALUATION COMPLETED. +S/S AND HIGH RISK OF ASPIRATION AT THIS TIME. RECOMMEND NPO, SHORT TERM ALTERNATE MEANS OF NUTRITION/HYDRATION. RECOMMEND ST DYSPHAGIA RE-EVALUATION ONCE PATIENT CAN TOLERATE TO BE OFF OF BIPAP FOR AT LEAST AN HOUR. VP [employer] COORDINATED WITH NURSE GRIDER WHO WAS PRESENT THE ENTIRE TIME DURING DYSPHAGIA BEDSIDE EVALUATION. Addendum: 04/14/[address] ALLY Amended: Links added.
[2020-04-14] MEDS: POTASSIUM CHLORIDE 10% ELIXIR 20 MEQ/15 ML UDCUP PO PRN ×2 (12:37→14:23)
[2020-04-14] MEDS ORDERED: MORPHINE SULFATE 2 MG/ML 1ML SYG ONE (15:41)
[2020-04-14] MEDS ORDERED: MORPHINE SULFATE 2 MG/ML 1ML SYG IVP ONE (15:45)
--- NOTE | 2020-04-14 17:54 | NUR ---
SNF Pt sedated at this time per primary nurse. Was able to contact pt's dtr Albina Lamb @ [phone]. Discussed w her Md order/recommendation for rehab at ct. [facility] consent obtained for any in network SNF. CM to follow up in am w referral.
[2020-04-14] MEDS: MORPHINE SULFATE 2 MG/ML 1ML SYG IV PRN (22:39)
[2020-04-15] VITALS (17 sets, daily range): BP systolic 106–172; BP diastolic 45–93
[2020-04-15] MEDS: ALBUTEROL SULFATE 0.083% 2.5 MG/3 ML INH IH SCH ×4 (00:18→23:40)
[2020-04-15] MEDS: MEROPENEM 1 GM VIAL IVP SCH ×3 (01:52→15:57)
[2020-04-15] MEDS: METOPROLOL TARTRATE 1 MG/ML 5ML VIAL IV SCH (03:30)
[2020-04-15 03:32] LABS: BASOPHILS % (AUTO) 0.1 % (0.0-5.0); EOSINOPHILS % (AUTO) 2.3 % (0.0-8.0); HEMATOCRIT 26.3 % (36-48); LYMPHOCYTES % (AUTO) 8.5 % (21.0-51.0); MEAN CORPUSCULAR HEMOGLOBIN 33.2 pg (27.0-33.0); MEAN CORPUSCULAR HGB CONC 32.3 g/dL (32.0-36.0); MEAN CORPUSCULAR VOLUME 102.7 fL (79-99); MONOCYTES % (AUTO) 11.1 % (3.0-13.0); NEUTROPHILS % (AUTO) 76.9 % (40.0-77.0); NUCLEATED RED BLOOD CELLS 0.4 % (0.0-0.19); PLATELET COUNT (AUTO) 257 K/uL (130-400); RED BLOOD CELL COUNT(AUTO) 2.56 MIL/uL (4.00-5.50); RED CELL DISTRIBUTION WIDTH 14.9 % (11.0-15.5); WHITE BLOOD COUNT (AUTO) 9.4 K/uL (4.8-10.8)
[2020-04-15 03:50] LABS: ALBUMIN 2.5 g/dL (3.5-5.0); BILIRUBIN,TOTAL 0.5 mg/dL (0.2-1.0); CREATININE 0.5 mg/dL (0.5-1.5); POTASSIUM 3.6 mmol/L (3.5-5.1); TOTAL PROTEIN, SERUM 5.5 g/dL (6.0-8.3)
[2020-04-15] MEDS: DILTIAZEM HCL 60 MG TABLET PO SCH ×4 (04:03→17:21)
[2020-04-15] MEDS: FAMOTIDINE/PF 20 MG/2 ML VIAL IV SCH ×2 (08:02→21:00)
[2020-04-15] MEDS: ENOXAPARIN SODIUM 40 MG/0.4 ML SYRINGE SQ SCH (08:03)
[2020-04-15] MEDS: FOLIC ACID 1 MG TABLET PO SCH (08:03)
[2020-04-15] MEDS: MORPHINE SULFATE 2 MG/ML 1ML SYG IV PRN (08:51)
[2020-04-15] MEDS: NICOTINE 21 MG/ 24 HR PATCH TD SCH (08:56)
[2020-04-15] MEDS: METHYLPREDNISOLONE SOD SUCC 125MG/2ML VIAL IVP SCH ×2 (09:41→15:58)
[2020-04-15] MEDS ORDERED: FUROSEMIDE 10 MG/ML 4ML VIAL IV SCH (10:30)
--- NOTE | 2020-04-15 13:38 | NUR ---
RD NOTIFICATION - TUBE FEEDING RECOMMENDATION Recommended advance Tube Feeding Jevity 1.5 rate as tolerated, goal rate 40mls/hr. 300mL Q6hrs H2O Flushes in place. Recommendations faxed to [facility] ([id number]), RN notified. NUTRITION NOTE Pt admitted with L-Hip fracture. S/p procedure resulting in Respiratory arrest, as per EMR. Pt s/p extubation 04/13. Pt remains on BiPAP. Monitored labs: Na 147, BNP 457, Alb 2.5, BG 124. Recommend advance tube feeding rate to goal as tolerated and medically feasible. RD to continue to Monitor. Please notify RD as additional nutrition concerns arise. Thank you. Addendum: 04/15/20 at [address] Amended: Links added.
[2020-04-15] MEDS: DEXMEDETOMIDINE HCL 400 MCG in SODIUM CHLORIDE 0.9% 100 ML IV SCH (14:11)
--- NOTE | 2020-04-15 15:26 | NUR ---
Telephone call to pt's dtr. Kenyatta Zainab re-order for Hospice; pt's dtr. reported that she is making arrangements and preparing for her flight to [place] from [place] with arrival scheduled for tomorrow. SW to f/u with pt's dtr. after she is able to visit with pt. for options.
--- NOTE | 2020-04-15 15:32 | NUR ---
FOLLOW UP COMPLETED. Pt CONTINUED TO BE ON CPAP AT THIS TIME. NO P.O. PROVIDED AT THIS TIME. METER READING CLERK WILL CONTINUE TO FOLLOW Pt. Addendum: 04/15/20 at 1535 by IGNACIO ESCAMILLA, SPT ST Amended: Links added.
[2020-04-15] MEDS: BUDESONIDE 0.5 MG/2 ML INH IH SCH (18:43)
[2020-04-15] MEDS ORDERED: DEXMEDETOMIDINE HCL 400 MCG in SODIUM CHLORIDE 0.9% 100 ML IV SCH (19:00)
[2020-04-16] VITALS (14 sets, daily range): BP systolic 130–164; BP diastolic 45–83
[2020-04-16] MEDS: MORPHINE SULFATE 2 MG/ML 1ML SYG IV PRN ×3 (00:51→21:06)
[2020-04-16] MEDS: METHYLPREDNISOLONE SOD SUCC 125MG/2ML VIAL IVP SCH ×2 (00:52→08:16)
[2020-04-16] MEDS: MEROPENEM 1 GM VIAL IVP SCH ×3 (00:52→15:42)
[2020-04-16] MEDS: METOPROLOL TARTRATE 1 MG/ML 5ML VIAL IV SCH (03:30)
[2020-04-16 04:31] LABS: ALBUMIN 2.6 g/dL (3.5-5.0); BILIRUBIN,TOTAL 0.4 mg/dL (0.2-1.0); CREATININE 0.5 mg/dL (0.5-1.5); POTASSIUM 3.4 mmol/L (3.5-5.1); TOTAL PROTEIN, SERUM 5.8 g/dL (6.0-8.3)
[2020-04-16] MEDS: BUDESONIDE 0.5 MG/2 ML INH IH SCH ×2 (06:23→18:57)
[2020-04-16] MEDS: ALBUTEROL SULFATE 0.083% 2.5 MG/3 ML INH IH SCH ×3 (06:23→18:41)
[2020-04-16] MEDS: DILTIAZEM HCL 60 MG TABLET PO SCH ×4 (06:58→15:42)
[2020-04-16] MEDS: POTASSIUM CHLORIDE 20 MEQ ERTAB PO PRN (08:15)
[2020-04-16] MEDS: FOLIC ACID 1 MG TABLET PO SCH (08:16)
[2020-04-16] MEDS: FAMOTIDINE/PF 20 MG/2 ML VIAL IV SCH ×2 (08:16→20:55)
[2020-04-16] MEDS: ENOXAPARIN SODIUM 40 MG/0.4 ML SYRINGE SQ SCH (08:17)
--- NOTE | 2020-04-16 08:30 | NUR ---
FOLLOW UP COMPLETED. Pt CONTINUES TO BE ON CPAP AT THIS TIME. NO FOOD OR LIQUIDS PROVIDED. HOLD RE-EVAL UNTIL CURRENT STATUS IMPROVES. Addendum: 04/16/20 at 1136 by IGNACIO ESCAMILLA, SPT ST Amended: Links added.
[2020-04-16 08:51] LABS: HEMATOCRIT 26.2 % (36-48); LYMPHOCYTES % (AUTO) 2.5 % (21.0-51.0); MEAN CORPUSCULAR HEMOGLOBIN 33.6 pg (27.0-33.0); MEAN CORPUSCULAR HGB CONC 33.2 g/dL (32.0-36.0); MEAN CORPUSCULAR VOLUME 101.2 fL (79-99); MONOCYTES % (AUTO) 3.5 % (3.0-13.0); NEUTROPHILS % (AUTO) 93.4 % (40.0-77.0); PLATELET COUNT (AUTO) 294 K/uL (130-400); RED BLOOD CELL COUNT(AUTO) 2.59 MIL/uL (4.00-5.50); RED CELL DISTRIBUTION WIDTH 15.2 % (11.0-15.5); WHITE BLOOD COUNT (AUTO) 10.3 K/uL (4.8-10.8)
[2020-04-16 09:02] LABS: PHOSPHORUS 2.2 mg/dL (2.5-4.9)
[2020-04-16] MEDS: NICOTINE 21 MG/ 24 HR PATCH TD SCH (09:09)
[2020-04-16] MEDS: FUROSEMIDE 10 MG/ML 2ML VIAL IV SCH (11:41)
[2020-04-16] MEDS ORDERED: NEUTRA-PHOS PACKET 1 EACH PO SCH (12:30)
--- NOTE | 2020-04-16 13:32 | NUR ---
NG TUBE NG TUBE CLOGGED AND NEEDING TO BE REPLACED. PATIENT REFUSING. DR. WHEELER NOTIFIED.
--- NOTE | 2020-04-16 15:36 | NUR ---
PATIENT MONY ROCA WITH SECURITY SPOKE WITH PATIENT, PATIENT'S DAUGHTER LISA, WELL A FAMILY FRIEND WHO, THEY ALL AGREED TO GIVE THE PATIENT'S CAR KEYS TO THE FAMILY FRIEND SO THEY CAN BE GIVEN TO LISA. KEYS HANDED TO ABELINO WITH SECURITY NOW AGAIN WITH PATIENT CONSENT.
[2020-04-16] MEDS: HYDRALAZINE HCL 20 MG/ML VIAL IV PRN (20:55)
[2020-04-16] MEDS: METHYLPREDNISOLONE SOD SUCC 40MG/ML 1ML IVP SCH (20:55)
[2020-04-16] MEDS ORDERED: METHYLPREDNISOLONE SOD SUCC 40MG/ML 1ML IVP SCH (21:00)
[2020-04-17] VITALS (9 sets, daily range): BP systolic 125–178; BP diastolic 48–106
[2020-04-17] MEDS: MEROPENEM 1 GM VIAL IVP SCH ×3 (00:30→16:30)
[2020-04-17] MEDS: METOPROLOL TARTRATE 1 MG/ML 5ML VIAL IV SCH (03:30)
[2020-04-17] MEDS: FUROSEMIDE 10 MG/ML 2ML VIAL IV SCH ×3 (03:56→22:14)
[2020-04-17] MEDS: BUDESONIDE 0.5 MG/2 ML INH IH SCH ×2 (06:26→18:53)
[2020-04-17] MEDS: ALBUTEROL SULFATE 0.083% 2.5 MG/3 ML INH IH SCH ×4 (06:26→18:48)
[2020-04-17] MEDS: DILTIAZEM HCL 60 MG TABLET PO SCH ×4 (06:32→18:00)
[2020-04-17] MEDS: FOLIC ACID 1 MG TABLET PO SCH (09:00)
[2020-04-17] MEDS: FAMOTIDINE/PF 20 MG/2 ML VIAL IV SCH ×2 (09:00→20:28)
[2020-04-17] MEDS: METHYLPREDNISOLONE SOD SUCC 40MG/ML 1ML IVP SCH ×2 (09:00→20:28)
[2020-04-17] MEDS: NICOTINE 21 MG/ 24 HR PATCH TD SCH (09:00)
[2020-04-17] MEDS: MORPHINE SULFATE 2 MG/ML 1ML SYG IV PRN ×3 (09:16→22:15)
[2020-04-17] MEDS: APIXABAN 2.5 MG TABLET PO SCH ×2 (10:00→20:28)
--- NOTE | 2020-04-17 10:41 | NUR ---
JUSTIN visited [facility] and spoke w/primary nurse Luis Pond; awaiting dtr's arrival. JUSTIN asked Luis Pond to contact this worker after dtr's arrival to speak w/her about hospice.
--- NOTE | 2020-04-17 15:16 | NUR ---
JUSTIN revisited; pt's dtr. Kenyatta at bedside and just arrived from [place] and allowed a short visit with pt. Kenyatta stated that her brother is also due in shortly and asked if this worker could speak with her tomorrow. SW will contact dtr. in a.m to discuss hospice options.
--- NOTE | 2020-04-17 16:04 | NUR ---
DYSPHAGIA EVAL COMPLETED. -S/S OF ASPIRATION. RECOMMEND FULL LIQUID DIET, PILLS WHOLE WITH LIQUIDS. Addendum: 04/17/20 at 1606 by IGNACIO ESCAMILLA, [facility] ST Amended: Links added.
--- NOTE | 2020-04-17 18:00 | NUR ---
REPORT CALLED TO 3RD FLOOR NURSE AND PT TO GO TO ROOM 309.
[2020-04-17] MEDS ORDERED: CALCIUM CARBON 500MG CHEW TAB PO PRN (19:15)
[2020-04-17] MEDS: ONDANSETRON HCL 4 MG/2 ML VIAL IVP PRN (21:31)
[2020-04-18] VITALS (8 sets, daily range): BP systolic 146–167; BP diastolic 51–83
[2020-04-18] MEDS: DILTIAZEM HCL 60 MG TABLET PO SCH ×2 (00:13→06:21)
[2020-04-18] MEDS: MEROPENEM 1 GM VIAL IVP SCH ×3 (00:13→17:16)
[2020-04-18] MEDS: ALBUTEROL SULFATE 0.083% 2.5 MG/3 ML INH IH SCH ×4 (00:20→18:28)
[2020-04-18] MEDS: METOPROLOL TARTRATE 1 MG/ML 5ML VIAL IV SCH (00:33)
--- NOTE | 2020-04-18 02:00 | NUR ---
IV 24G PIV STARTED TO RIGHT HAND.
--- NOTE | 2020-04-18 02:15 | NUR ---
received received patient from day patient via bed, patient awake, alert, ox3, on nonrebreather, sat 98 %, f/c to gravity drainage, fall precautions, orient patient to room, teach patient plan of care and expected outcome, pain management teaching, hip precautions reinforced, bed alarm on, patient verbalize understanding via teach back
--- NOTE | 2020-04-18 02:17 | NUR ---
TRANSFER PT TRANSFERRED TO ROOM 309 AT THIS TIME
[2020-04-18] MEDS: BUDESONIDE 0.5 MG/2 ML INH IH SCH ×2 (06:34→18:28)
[2020-04-18] MEDS: METHYLPREDNISOLONE SOD SUCC 40MG/ML 1ML IVP SCH ×3 (08:48→21:00)
[2020-04-18] MEDS: APIXABAN 2.5 MG TABLET PO SCH ×2 (09:01→20:47)
[2020-04-18] MEDS: FOLIC ACID 1 MG TABLET PO SCH (09:02)
[2020-04-18] MEDS: FAMOTIDINE/PF 20 MG/2 ML VIAL IV SCH ×3 (09:02→21:00)
[2020-04-18] MEDS: GUAIFENESIN 600 MG TABLET.ER PO SCH ×2 (09:10→20:47)
--- NOTE | 2020-04-18 09:30 | NUR ---
JUSTIN contacted pt's dtrReena You to discuss d/c options with hospice. Dtr. informed that this worker would be speaking with pt. about hospice/placement.
--- NOTE | 2020-04-18 10:00 | NUR ---
SW visited pt. to discuss hospice options/placement and pt. informed this worker that she changed her mind about hospice and wants to go home or try therapy for strengthening. SW spoke w/pt. about safety concerns since she resides alone. SW spoke with pt. about SNF and pt. declined. JUSTIN contacted pt's dtr from pt's bedside; dtr. attempted to speak w/pt about d/c plans. Dtr. requested to visit pt. and speak w/her in person about hospice/vs SNF. Approval given for dtr. to visit pt.
--- NOTE | 2020-04-18 10:30 | NUR ---
SWALLOW TREATMENT COMPLETED. Pt RAISED TO 90 DEGREES IN BED. Pt WITH NON-REBREATHER IN PLACE AT THIS TIME. Pt PARTICIPATED IN THERAPEUTIC TRIALS OF THIN LIQUIDS. NO OVERT S/S OF ASPIRATION PRESENT. CIRCLE CUTTING SAW OPERATOR CUED Pt TO REPLACE NON-REBREATHER AFTER EVERY TRIAL. Pt VERBALIZED UNDERSTANDING AND COMPLIANCE. Pt IS NOT ABLE TO TOLERATE DIET ADVANCEMENT AT THIS TIME. Addendum: 04/18/20 at 1416 by IGNACIO ESCAMILLA [facility] Amended: Links added.
--- NOTE | 2020-04-18 11:45 | NUR ---
JUSTIN revisited pt., pt's dtr at bedside and decision made for SNF versus Hospice. JUSTIN notified CM/Radha that pt. has elected SNF. Pt. and dtr. Kenyatta informed per Insurance, GP and HNR in network. Pt. requested HNR as her first choice. CM will continue to follow.
[2020-04-18] MEDS: DILTIAZEM HCL 120 MG CAP.SR.24H PO SCH (13:56)
--- NOTE | 2020-04-18 15:26 | NUR ---
CM Note: [facility] pending approval JUSTIN obtained [facility] for HNR. Faxed order, clinicals, PT, PASRR, Covid Transfer Form to [facility], confirmation received. Spoke to Lianne, made aware pending covid test ordered today, will send result once available. Pt pending approval and acceptance. EMS filled out, pending to be faxed w/current date once pt ready to DC. Primary nurse aware. CM to cont to follow up.
--- NOTE | 2020-04-18 18:35 | NUR ---
NASAL SWAB DONE FOR COVIC-19. REQUESTED FOR SNF PLACEMENT HAS BEEN CHECKED ALREADY AND REPORTED NEG. BUT NEW ORDER IN.
[2020-04-18] MEDS: MORPHINE SULFATE 2 MG/ML 1ML SYG IV PRN (19:13)
--- NOTE | 2020-04-18 20:40 | NUR ---
IV PATIENT HAD 2 PERIPHERAL IV'S BOTH WERE NONFUNCTIONING AND REMOVED. ATTEMPTED TO START NEW IV 3 TIMES AND UNSUCCESSFUL. WILL ASK ANOTHER NURSE TO START ACCESS.
[2020-04-19] VITALS (7 sets, daily range): BP systolic 138–179; BP diastolic 62–93
[2020-04-19] MEDS: ALBUTEROL SULFATE 0.083% 2.5 MG/3 ML INH IH SCH ×6 (00:25→23:22)
[2020-04-19] MEDS: MEROPENEM 1 GM VIAL IVP SCH ×2 (01:28→12:15)
[2020-04-19] MEDS: MORPHINE SULFATE 2 MG/ML 1ML SYG IV PRN ×3 (01:29→23:25)
[2020-04-19] MEDS: METOPROLOL TARTRATE 1 MG/ML 5ML VIAL IV SCH (03:30)
[2020-04-19 05:17] LABS: CREATININE 0.5 mg/dL (0.5-1.5)
[2020-04-19 05:50] LABS: POTASSIUM 2.8 mmol/L (3.5-5.1)
[2020-04-19] MEDS ORDERED: LORAZEPAM 2 MG/ML 1 ML VIAL IVP SCH (06:00)
[2020-04-19] MEDS: LIDOCAINE HCL-MPF 1% 2ML VIAL IV PRN ×2 (06:14→10:37)
[2020-04-19] MEDS: POTASSIUM CHLORIDE 20MEQ/100ML 100 ML IV PRN ×2 (06:14→10:40)
[2020-04-19] MEDS ORDERED: LORAZEPAM 2 MG/ML 1 ML VIAL ONE (06:16)
[2020-04-19] MEDS: BUDESONIDE 0.5 MG/2 ML INH IH SCH ×2 (06:36→18:48)
[2020-04-19 08:44] LABS: HEMATOCRIT 28.7 % (36-48); MEAN CORPUSCULAR HEMOGLOBIN 33.3 pg (27.0-33.0); MEAN CORPUSCULAR HGB CONC 30.7 g/dL (32.0-36.0); MEAN CORPUSCULAR VOLUME 108.7 fL (79-99); PLATELET COUNT (AUTO) 264 K/uL (130-400); RED BLOOD CELL COUNT(AUTO) 2.64 MIL/uL (4.00-5.50); RED CELL DISTRIBUTION WIDTH 16.2 % (11.0-15.5); WHITE BLOOD COUNT (AUTO) 14.6 K/uL (4.8-10.8)
[2020-04-19] MEDS: DILTIAZEM HCL 120 MG CAP.SR.24H PO SCH ×2 (09:00→17:04)
[2020-04-19] MEDS: NICOTINE 21 MG/ 24 HR PATCH TD SCH ×2 (09:00→12:15)
[2020-04-19 09:17] LABS: INR 1.08 (0.85-1.15); PARTIAL THROMBOPLASTIN TIME 25.9 SEC (26.3-35.5); PROTHROMBIN TIME 11.6 SEC (9.6-11.6)
[2020-04-19] MEDS: FAMOTIDINE/PF 20 MG/2 ML VIAL IV SCH ×2 (10:41→20:34)
[2020-04-19] MEDS: METHYLPREDNISOLONE SOD SUCC 40MG/ML 1ML IVP SCH (10:41)
[2020-04-19] MEDS: APIXABAN 2.5 MG TABLET PO SCH ×2 (12:14→20:35)
[2020-04-19] MEDS: FOLIC ACID 1 MG TABLET PO SCH (12:14)
[2020-04-19] MEDS: GUAIFENESIN 600 MG TABLET.ER PO SCH ×2 (12:15→20:34)
--- NOTE | 2020-04-19 12:52 | NUR ---
FOLLOW UP COMPLETED. Pt CURRENTLY TOLERATING FULL LIQUID DIET. NO OVERT S/S OF ASPIRATION PRESENT AT THIS TIME. RECOMMEND CONTINUED SIET. OVERALL RESPIRATORY STATUS HAS IMPROVED AND Pt SEEN WITH NC IN PLACE. RETIREMENT PLAN COUNSELOR WILL CONTINUE TO FOLLOW Pt. Addendum: 04/19/20 at 1253 by IGNACIO ESCAMILLA, SPT ST Amended: Links added.
[2020-04-19 15:18] LABS: BILIRUBIN,URINE NEGATIVE (NEGATIVE); GLUCOSE, URINE (UA) NEGATIVE (NEGATIVE); KETONES,URINE 15 mg/dL (NEGATIVE); LEUKOCYTE ESTERASE ,URINE SMALL (NEGATIVE); NITRATE,URINE POSITIVE (NEGATIVE); OCCULT BLOOD,URINE LARGE (NEGATIVE); PROTEIN,URINE >=300 mg/dL (NEGATIVE)
[2020-04-19 15:20] LABS: APPEARANCE,URINE BLOODY (CLEAR); COLOR,URINE Red (YELLOW)
[2020-04-19 15:21] LABS: BACTERIA,URINE Few /HPF (None Seen); RBC,URINE TNTC /HPF (0-1)
[2020-04-19 15:22] LABS: SQUAMOUS EPITHELIAL CELL,UR 0-2 /HPF (0-2)
--- NOTE | 2020-04-19 17:44 | NUR ---
DR. LAINEZ NOTIFIED RE; FLUCONAZOLE SIDE EFFECTS. STATES PATIENT MAY START FLUCONAZOLE PO, HE WAS AWARE OF PATIENT BEING ON DILTIAZEM, STATES IT IS OKAY TO GIVEN.
--- NOTE | 2020-04-19 19:22 | NUR ---
PROMPT RECD RE: TRANSFER TO [place]? CLARIFIED WITH FAMILY. NOT NOW WHEN PATIENT GETS STRONGER. AGREES WITH TRANSFER TO [facility] FOR THERAPY STILL PENDING COVID PCR BUT PATIENT IS CLEARED TO GO TO SNF AT THIS TIME
[2020-04-19] MEDS ORDERED: FLUCONAZOLE 100 MG TAB PO SCH (21:00)
[2020-04-20] VITALS (7 sets, daily range): BP systolic 107–153; BP diastolic 59–79
[2020-04-20 04:24] LABS: HEMATOCRIT 31.8 % (36-48); MEAN CORPUSCULAR HEMOGLOBIN 33.1 pg (27.0-33.0); MEAN CORPUSCULAR HGB CONC 29.2 g/dL (32.0-36.0); MEAN CORPUSCULAR VOLUME 113.2 fL (79-99); RED BLOOD CELL COUNT(AUTO) 2.81 MIL/uL (4.00-5.50); RED CELL DISTRIBUTION WIDTH 16.4 % (11.0-15.5); WHITE BLOOD COUNT (AUTO) 10.2 K/uL (4.8-10.8)
[2020-04-20 04:35] LABS: INR 1.09 (0.85-1.15); PARTIAL THROMBOPLASTIN TIME 24.2 SEC (26.3-35.5); PROTHROMBIN TIME 11.7 SEC (9.6-11.6)
[2020-04-20] MEDS: ALBUTEROL SULFATE 0.083% 2.5 MG/3 ML INH IH SCH ×3 (06:43→18:19)
[2020-04-20] MEDS: BUDESONIDE 0.5 MG/2 ML INH IH SCH ×2 (06:43→18:20)
[2020-04-20] MEDS: PREDNISONE 20 MG TABLET PO SCH (08:18)
[2020-04-20] MEDS: APIXABAN 2.5 MG TABLET PO SCH (08:18)
[2020-04-20] MEDS: ACETAMINOPHEN-CODEINE 300/30MG TAB PO PRN (08:19)
[2020-04-20] MEDS: DILTIAZEM HCL 120 MG CAP.SR.24H PO SCH (08:20)
[2020-04-20] MEDS: GUAIFENESIN 600 MG TABLET.ER PO SCH (08:20)
[2020-04-20] MEDS: FOLIC ACID 1 MG TABLET PO SCH (08:20)
[2020-04-20] MEDS: FAMOTIDINE/PF 20 MG/2 ML VIAL IV SCH (08:20)
[2020-04-20] MEDS: NICOTINE 21 MG/ 24 HR PATCH TD SCH (09:00)
--- NOTE | 2020-04-20 15:17 | NUR ---
[facility]-Auth Spoke w Eva from [facility], states that they have received ins auth for admission to their facility. COVID PCR results faxed to Eva as well. Spoke w nurse Martínez and KNUCKLER Meli-pt is not medically ready for transfer at this time. Also spoke pt's dtr Kenyatta to inform her of ins auth. She mentions however that she wants to discuss further w Md as she feels pt has declined from yesterday.
--- NOTE | 2020-04-20 16:20 | NUR ---
DR JUAREZ WANTS TO TALK TO DR. Simmons BUT HAS TO GO HOME AND WILL COME BACK TOMORROW. Addendum: 04/20/20 at 1935 by GUILLERMO RANGEL RN RN DAUGHTER WANTS TO TALK TO DR. Simmons.
[2020-04-21] MEDS: ALBUTEROL SULFATE 0.083% 2.5 MG/3 ML INH IH SCH ×2 (00:26→06:09)
[2020-04-21 03:24] VITALS: BP 100/43
[2020-04-21 04:42] LABS: HEMATOCRIT 36.8 % (36-48); MEAN CORPUSCULAR VOLUME 121.5 fL (79-99); RED BLOOD CELL COUNT(AUTO) 3.03 MIL/uL (4.00-5.50); RED CELL DISTRIBUTION WIDTH 16.4 % (11.0-15.5); WHITE BLOOD COUNT (AUTO) 8.6 K/uL (4.8-10.8)
[2020-04-21 05:02] LABS: INR 1.03 (0.85-1.15); PARTIAL THROMBOPLASTIN TIME 22.6 SEC (26.3-35.5); PROTHROMBIN TIME 11.1 SEC (9.6-11.6)
[2020-04-21] MEDS: BUDESONIDE 0.5 MG/2 ML INH IH SCH (06:09)
--- NOTE | 2020-04-21 07:30 | NUR ---
B/P TAKE N B/P DOWN TO 70/30 PT NOT AROUSABLE , STATUS DNR , DNI
--- NOTE | 2020-04-21 07:45 | NUR ---
JED RAMIREZ N.P. HERE FOR THE [facility]OSP[facility] UPDATE OF PT B/P STATUS . NO DR. ORDERS . PT IS UNRESPONSIVE KEEPING PT COMFORTABLE .
[2020-04-21] MEDS: GUAIFENESIN 600 MG TABLET.ER PO SCH (08:50)
[2020-04-21] MEDS: DILTIAZEM HCL 120 MG CAP.SR.24H PO SCH (08:51)
[2020-04-21] MEDS: PREDNISONE 20 MG TABLET PO SCH (08:51)
[2020-04-21] MEDS: FOLIC ACID 1 MG TABLET PO SCH (08:51)
[2020-04-21] MEDS: NICOTINE 21 MG/ 24 HR PATCH TD SCH (08:52)
[2020-04-21] MEDS: APIXABAN 2.5 MG TABLET PO SCH (08:53)
--- NOTE | 2020-04-21 11:00 | NUR ---
PT DAUGHTER IN THE ROOM.. AND PT . CHARGE NURSE,MARIAM DAMON AND Brad RAMIREZ. N.P. AT THE BEDSIDE, AND REVIEW PT .STATUS . .
--- NOTE | 2020-04-21 12:00 | NUR ---
HUMBERTO SEE INFORMATION SHEET WAS vEita ALLED PER CHARGE NURSE NELSON Carter R.N., AND HOUSE SUPERVIOR . TO SIGNED . FORM. HERE .
--- NOTE | 2020-04-21 13:00 | NUR ---
[employer] STAFF AT THE BEDSIDE WITH DAUGHTER.
--- NOTE | 2020-04-21 13:20 | NUR ---
SECURITY STAFF HERE , FOR PICKUP BODY, OF MRS. KATTY ROSE .
--- NOTE | 2020-04-21 13:20 | NUR ---
POST MORTEM CARE DONE, WITH THE REMOVAL OF THE [facility] AND [facility] CATHETER ,
== END 2020-04-21 10:55 | disposition expired | DRG 480 ==
LOC: EDH 06:17 → EDHIP 09:41 → 3DH 11:07 → 3BH 04-10 13:52 → DAHIP 04-10 23:12 → 3BH 04-18 02:28
PROVIDERS: ADMIT Hospitalist; ATTEND Hospitalist
PROC: 5A12012 Performance of Cardiac Output, Single, Manual (ICD-10-PCS; 2020-04-10)
PROC: 3E0T3BZ Introduction of Anesthetic Agent into Peripheral Nerves and Plexi, Percutaneous Approach (ICD-10-PCS; 2020-04-10)
PROC: 5A1945Z Respiratory Ventilation, 24-96 Consecutive Hours (ICD-10-PCS; principal; 2020-04-10 11:56)
PROC: 0BH17EZ Insertion of Endotracheal Airway into Trachea, Via Natural or Artificial Opening (ICD-10-PCS; 2020-04-10 11:56)
PROC: 0QS706Z Reposition Left Upper Femur with Intramedullary Internal Fixation Device, Open Approach (ICD-10-PCS; 2020-04-10 11:56)
PROC: 5A09357 Assistance with Respiratory Ventilation, Less than 24 Consecutive Hours, Continuous Positive Airway Pressure (ICD-10-PCS; 2020-04-13)
PROC: 5A09457 Assistance with Respiratory Ventilation, 24-96 Consecutive Hours, Continuous Positive Airway Pressure (ICD-10-PCS; 2020-04-14)
PROC: 5A09357 Assistance with Respiratory Ventilation, Less than 24 Consecutive Hours, Continuous Positive Airway Pressure (ICD-10-PCS; 2020-04-16)
PROC: 5A09357 Assistance with Respiratory Ventilation, Less than 24 Consecutive Hours, Continuous Positive Airway Pressure (ICD-10-PCS; 2020-04-17)
DX: S72.142A Displaced intertrochanteric fracture of left femur, initial encounter for closed fracture (principal); J96.01 Acute respiratory failure with hypoxia; J69.0 Pneumonitis due to inhalation of food and vomit; J96.02 Acute respiratory failure with hypercapnia; J94.2 Hemothorax; E44.0 Moderate protein-calorie malnutrition; E87.0 Hyperosmolality and hypernatremia; I50.30 Unspecified diastolic (congestive) heart failure; R64 Cachexia; Z68.1 Body mass index [BMI] 19.9 or less, adult; W01.0XXA Fall on same level from slipping, tripping and stumbling without subsequent striking against object, initial encounter; F17.210 Nicotine dependence, cigarettes, uncomplicated; D64.9 Anemia, unspecified; E83.42 Hypomagnesemia; E87.6 Hypokalemia; I11.0 Hypertensive heart disease with heart failure; I25.10 Atherosclerotic heart disease of native coronary artery without angina pectoris; I25.2 Old myocardial infarction; I35.0 Nonrheumatic aortic (valve) stenosis; I48.0 Paroxysmal atrial fibrillation; I73.9 Peripheral vascular disease, unspecified; J43.9 Emphysema, unspecified; Y92.009 Unspecified place in unspecified non-institutional (private) residence as the place of occurrence of the external cause; Z51.5 Encounter for palliative care; Z66 Do not resuscitate; Z20.828 Contact with and (suspected) exposure to other viral communicable diseases; S41.011A Laceration without foreign body of right shoulder, initial encounter; Z79.01 Long term (current) use of anticoagulants; Z79.899 Other long term (current) drug therapy; Z82.0 Family history of epilepsy and other diseases of the nervous system; Z82.49 Family history of ischemic heart disease and other diseases of the circulatory system; Z82.5 Family history of asthma and other chronic lower respiratory diseases; Z83.3 Family history of diabetes mellitus; Z90.710 Acquired absence of both cervix and uterus; Z91.14 Patient's other noncompliance with medication regimen; Z91.19 Patient's noncompliance with other medical treatment and regimen; Y93.89 Activity, other specified; Y99.8 Other external cause status; Z71.6 Tobacco abuse counseling; R00.1 Bradycardia, unspecified
CPT/HCPCS: 31500; 36415; 36600; 71045; 71250; 71275; 73503; 73521; 80048; 80053; 81001; 82550; 82803; 82948; 83605; 83735; 83874; 83880; 84100; 84132; 84145; 84484; 85025; 85027; 85610; 85730; 87040; 87071; 87088; 87205; 87426; 92526; 92610; 92950; 93005; 93306; 94002; 94003; 94640; 94660; 94664; 97039; G0378; J0330; J0360; J0456; J0461; J0696; J0885; J1100; J1650; J1756; J1940; J2001; J2060; J2185; J2250; J2405; J2704; J2710; J2795; J2920; J2930; J3010; J3475; J3480; J3490; J7050; J7120; P9045; Q9967; U0003